=== PATIENT | male | born 1980 ===

== ENCOUNTER → 2020-11-25 | Outpatient (CLI) | payer SELFPAY | END | disposition home or self-care (01) | LOC: LAB SHORT 11:58 | DX: D22.5 Melanocytic nevi of trunk (principal); D48.5 Neoplasm of uncertain behavior of skin; L53.8 Other specified erythematous conditions; L08.9 Local infection of the skin and subcutaneous tissue, unspecified; R20.8 Other disturbances of skin sensation | CPT/HCPCS: 87070; 87205 ==